=== PATIENT | female | born 1965 | race Caucasian/White ===

== ENCOUNTER → 2022-07-15 11:43 | Outpatient (CLI) | payer OTHER, SELFPAY ==
--- NOTE | ~2022-07-15 | MM_ITS ---
EXAMINATION: MM screening mee BI w corby HISTORY: Screening mammogram TECHNIQUE: Craniocaudal and mediolateral oblique 3-D tomosynthesis images were obtained and synthetic 2-D images were generated. CAD analysis was submitted and interpreted. COMPARISON: 02/12/2010 bilateral screening mammogram BREAST PARENCHYMAL COMPOSITION: There are scattered areas of fibroglandular density. FINDINGS: Stable mild asymmetry since 2009. There is no evidence of suspicious mass, calcification, o r architectural distortion to suggest malignancy in either breast. There has been no suspicious inter emilie change. IMPRESSION: 1. No mammographic evidence of malignancy. 2. Recommend routine screening mammography in one year. BI-RADS Category 2: Benign finding(s). Reviewed, dictated and finalized at location A.
== END ==
PROVIDERS: PCP Family Medicine; Visit Provider Physician Assistant Medical
DX: Z12.31 Encounter for screening mammogram for malignant neoplasm of breast (principal)
CPT/HCPCS: 77063; 77067

== ENCOUNTER 2023-10-08 15:01 | Emergency (ER) | payer OTHER, SELFPAY ==
[2023-10-08 15:12] VITALS: BP 145/96; PULSE 82; RESP 16; TEMP 37.6; O2SAT 97
--- NOTE | 2023-10-08 15:43 | ED.GENADULT ---
HPI - General Adult General Chief complaint: Skin/Abscess/Foreign Body Stated complaint: Right Breast Irritation Source: patient Mode of arrival: ambulatory Limitations: no limitations History of Present Illness HPI narrative: Patient presents for evaluation of redness to the right breast since yesterday. She indicates she noticed a blackhead to the breast over a month ago. She applied some pressure and was able to extract some white discharge. She continued to have a lump in the area so discussed this with her OBGYN at an appt about one month ago per her reports. She has a mammogram and ultrasound scheduled two days from now. She began picking at the area again yesterday and developed worsening redness thereafter. No fever, chills, nausea, vomiting. She is not diabetic. No history of abnormal mammogram. Last mammogram one year ago. Related Data Allergies Allergy/AdvReac Type Severity Reaction Status Date / Time Sulfa (Sulfonamide Allergy Severe HIVES Unverified 03/11/09 14:32 Antibiotics) Review of Systems Review of Systems: CONSTITUTIONAL: Denies fever, chills, or sweats. EYES: Denies visual changes, redness, or discharge. ENT: Denies rhinorrhea, congestion, sore throat, or otalgia. CARDIOVASCULAR: Denies chest pain, palpitations, or edema. RESPIRATORY: Denies cough or dyspnea. GASTROINTESTINAL: Denies abdominal pain, nausea, vomiting, or diarrhea. GENITOURINARY: Denies dysuria or hematuria. SKIN: Reports redness to the right breast. Denies rash or itching. MUSCULOSKELETAL: Reports pain in the right breast. Denies back pain or joint pain. NEUROLOGIC: Denies headache, numbness, dizziness, or weakness. PSYCHIATRIC: Denies anxiety or depression. [facility] Past Medical History Medical History Cellulitis of right breast Migraines Surgical History Surgical History History of tonsillectomy Family History Family History Mother Family history non-contributory Social History Social History Substance use: never Gender identity (if verbalized by the patient): Female Spiritual care concerns: No Exam Narrative: GENERAL: Well-appearing, well-nourished, and in no acute distress. HEAD: Normocephalic, atraumatic. EYES: PERRLA and EOMI. ENT: Nares clear, no rhinorrhea or epistaxis. Mucous membranes moist. Oropharynx without tonsillar hypertrophy exudate or other lesions. Bilateral TMs pearly poole nonbulging NECK: Supple. No adenopathy or masses. No carotid bruits or JVD CHEST: Clear to auscultation. No respiratory distress. No wheezes rales or rhonchi HEART: Regular rate and rhythm. No murmur heard. Normal peripheral pulses. ABDOMEN: Soft, nontender, nondistended, normal active bowel sounds. EXTREMITIES: Normal range of motion. No edema. SKIN: There is a 13 x 14 area of erythema to right breast with a 2 mm pustule with that area, and underlying induration. No peau d'orange appearance to the breast NEURO: No focal deficits. Alert and oriented x3. PSYCH: Normal mood and affect. Course Course Emergency Course: this is a 58-year-old female who presented for evaluation of redness to the right breast. She did have a pustule on exam but underlying tissue was indurated. I performed single stick puncture to right breast pustule and gently expressed approximately 2 ml of purulence. Wound culture was obtained. I contacted breast surgeon, Dr. Cooper, and she was agreeable to plans for discharge with clindamycin. She recommended pt call her office tomorrow for an appt. She should call imaging center tomorrow and update them regarding recent course of events. I would think it would be beneficial for her to keep ultrasound appt on Monday to determine wheth
== END 2023-10-08 15:43 | disposition home or self-care (01) ==
PROVIDERS: Emergency Provider Nurse Practitioner; PCP Internal Medicine
DX: N61.0 Mastitis without abscess (principal)
CPT/HCPCS: 10160; 87070; 87075; 87076; 87205; 99213; G0463

== ENCOUNTER → 2023-10-10 07:35 | Outpatient (CLI) | payer OTHER, SELFPAY ==
--- NOTE | ~2023-10-10 | MMUS_ITS ---
EXAMINATION: MM diagnostic mee BI w corby, US breast RT limited HISTORY: Palpable lump pain in the upper outer quadrant of the right breast TECHNIQUE: Craniocaudal, mediolateral, and mediolateral oblique 3-D tomosynthesis images of the breas ts were performed and synthetic 2-D images were generated. CAD analysis was submitted and interpreted . High resolution limited right breast ultrasound was performed. COMPARISON: 07/15/2022, 02/02/2010, 06/17/2008 BREAST PARENCHYMAL COMPOSITION: There are scattered areas of fibroglandular density. FINDINGS: MAMMOGRAPHIC FINDINGS: Right breast: There is skin thickening and subtle asymmetry on the craniocaudal view in the upper out er quadrant of the right breast corresponding to the area of palpable concern and pain. No suspicious mass, calcification, or architectural distortion are identified. Left breast: No suspicious mass, calcification, or architectural distortion are identified to suggest malignancy. There has been no suspicious interval change. ULTRASOUND: There is a 9 mm hypoechoic mass with indistinct margins at the 11:00 location, 11 cm from the nipple with a tract to the skin corresponding to the area of palpable concern and pain. There is surrounding edema and overlying skin thickening. No suspicious cystic or solid mass is identified. IMPRESSION: 1. Findings most consistent with an infected sebaceous cyst in the upper outer quadrant of the right breast corresponding to the area of clinical concern. Recommend completion of current antibiotic ther apy and continued clinical assessment. If findings do not resolve clinically, repeat ultrasound would be indicated. BI-RADS Category 2: Benign finding(s). Reviewed, dictated and finalized at location A. 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 Findings most consistent with an infected sebaceous cyst in the upper outer quadrant of the right breast corresponding to the area of clinical concern. Rec ommend completion of current antibiotic therapy and continued clinical assessme nt. If findings do not resolve clinically, repeat ultrasound would be indicated . BI-RADS Category 2: Benign finding(s).
== END ==
PROVIDERS: PCP Surgery; Visit Provider Nurse Practitioner
DX: N63.10 Unspecified lump in the right breast, unspecified quadrant (principal); R92.8 Other abnormal and inconclusive findings on diagnostic imaging of breast
CPT/HCPCS: 76642; 77062; 77066; G0279

== ENCOUNTER 2023-10-16 16:44 | Outpatient (NON) | payer OTHER, SELFPAY | END 2023-10-16 16:45 | disposition home or self-care (01) | LOC: ANHLAB 16:45 | PROVIDERS: PCP Surgery; Visit Provider Surgery | DX: N61.1 Abscess of the breast and nipple (principal) | CPT/HCPCS: 87070; 87075; 87076; 87205 ==

== ENCOUNTER 2024-02-08 11:37 | Outpatient (CLI) | payer OTHER, SELFPAY ==
--- NOTE | ~2024-02-08 | DEXA_ITS ---
Bone Density Report Name: BABAR COOLEY Age: 58 Sex: Female Ethnicity: White Date of : 1965 Indication: postmenopausal; screening for osteoporosis; height loss; hysterectomy; Referring Provider: NICK, PIETRO Study: Bone densitometry was performed. Exam Date: February 08, 2024 Accession number: [id number] Bone Density: Region BMD T-score Z-score Classification AP Spine (L1-L4) 0.923 -1.1 0.1 Osteopenia Femoral Neck (Left) 0.749 -0.9 0.3 Normal Total Hip (Left) 0.851 -0.7 0.1 Normal Femoral Neck (Right) 0.788 -0.5 0.6 Normal Total Hip (Right) 0.884 -0.5 0.3 Normal Total Hip Mean 0.868 -0.6 0.2 Normal World Health Organization criteria for BMD impression classify patients as: Normal (T-score at or above -1.0), Osteopenia (T-score between -1.0 and -2.5), or Osteoporosis (T-score at or below -2.5). 10-year Fracture Risk(1): Major Osteoporotic Fracture 5.5% Hip Fracture 0.2% Reported Risk Factors: [place] (), Neck BMD=0.749, BMI=43.7 (1) FRAX(R) Version 3.08. Fracture probability calculated for an untreated patient. Fracture probability may be lower if the patient has received treatment. Clinical Information Provided by Patient: Has the following medical conditions: Hysterectomy Patient maximum height was 58.0 Menopause Age: 31 No regular weight bearing exercise Drinks caffeinated beverages Onset of menses at age 13 Number of children 0 Impression: The patient has low bone mass, based on the Total Spine T-score. The patient has an estimated ten-year risk of hip fracture of 0.2% and an estimated ten-year risk of major fracture of 5.5%, based on the WHO FRAX algorithm. Discussion: BONE DENSITY IS LOW AT ONE OR MORE SKELETAL SITES. This patient's lowest T-score is low at one or more skeletal sites. It meets the World Health Organization's (WHO) criteria for ?low bone mass? (T-score between -1.0 and -2.5). The patient's 10-year risk of fracture as calculated by FRAX is less than the threshold where pharmacological therapy is recommended by the National Osteoporosis Foundation (NOF). However, all treatment decisions require clinical judgment and consideration of individual patient factors, including patient preferences, comorbidities, previous drug use, risk factors not captured in the FRAX model (e.g., frailty, falls, vitamin D deficiency, increased bone turnover, interval significant decline in bone density) and possible under or overestimation of fracture risk by FRAX. The patient should follow a healthful lifestyle (good nutrition with adequate calcium and vitamin D, and appropriate weight-bearing exercise). Follow-Up: Consider repeating this study in 2 to 3 years to reassess this patient's status, or sooner if there is some new clinical indication. Reported
== END 2024-02-08 11:38 ==
LOC: MICIMG 11:38
PROVIDERS: PCP Nurse Practitioner; Visit Provider Nurse Practitioner
DX: Z78.0 Asymptomatic menopausal state (principal); M85.88 Other specified disorders of bone density and structure, other site
CPT/HCPCS: 77080

== ENCOUNTER 2025-01-09 07:41 | Outpatient (CLI) | payer BC, SELFPAY ==
--- NOTE | ~2025-01-09 | MMUS_ITS ---
EXAMINATION: MM diagnostic mee BI w corby, US breast LT limited HISTORY: Palpable left breast lump TECHNIQUE: Additional 3-D tomosynthesis images of the breasts were performed and synthetic 2-D images were generated. CAD analysis was submitted and interpreted. High resolution Limited left breast ultr asound was performed. COMPARISON: Comparison to multiple prior studies sequentially, with oldest reviewed study dated 07/15. BREAST PARENCHYMAL COMPOSITION: Not dense: There are scattered areas of fibroglandular density. FINDINGS: MAMMOGRAPHIC FINDINGS: There are no suspicious masses, calcifications or architectural distortion in either breast to sugges t malignancy. ULTRASOUND: Limited left breast ultrasound: At 2:00, 5 cm from the nipple in the area of palpable concern there i s an oval 7 mm hypoechoic subcutaneous mass without posterior shadowing or internal vascularity, is l ikely benign. IMPRESSION: 1. Probable benign subcutaneous 7 mm left breast mass at 2:00, 5 cm from the nipple. 2. Recommend 6 month follow-up Limited left breast ultrasound BI-RADS category 3, probably benign findings. 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 Probable benign subcutaneous 7 mm left breast mass at 2:00, 5 cm from the ni pple. 2. Recommend 6 month follow-up Limited left breast ultrasound BI-RADS category 3, probably benign findings.
== END 2025-01-09 07:42 | disposition home or self-care (01) ==
PROVIDERS: PCP Physician Assistant; Visit Provider Nurse Practitioner
DX: N63.21 Unspecified lump in the left breast, upper outer quadrant (principal)
CPT/HCPCS: 76642; 77062; 77066; G0279

== ENCOUNTER 2025-07-10 07:44 | Outpatient (CLI) | payer BC, SELFPAY ==
--- NOTE | ~2025-07-10 | MMUS_ITS ---
EXAMINATION: MM diagnostic mee LT w corby, US breast LT limited HISTORY: Follow-up left breast mass TECHNIQUE: Additional 3-D tomosynthesis images of the left breast were performed and synthetic 2-D im ages were generated. CAD analysis was submitted and interpreted. High resolution Limited left breast ultrasound was performed. COMPARISON: 07/15/2022 BREAST PARENCHYMAL COMPOSITION: Not dense: There are scattered areas of fibroglandular density. FINDINGS: MAMMOGRAPHIC FINDINGS: The left breast is stable. No new masses, calcifications or architectural distortion in the left pancho st to suggest malignancy. ULTRASOUND: Limited left breast ultrasound: Normal heterogeneous echotexture without focal solid or cystic mass. The mass identified on prior ultrasound at 2:00, 5 cm from the nipple is now visualized currently. IMPRESSION: 1. No evidence for malignancy in the left breast. 2. Routine yearly screening mammogram and regular clinical breast examination are recommended. BI-RADS Category 1: Negative Reviewed, dictated and finalized at location A. IMPRESSION: 1. No evidence for malignancy in the left breast. 2. Routine yearly screening mammogram and regular clinical breast examination a re recommended. BI-RADS Category 1: Negative
== END 2025-07-10 07:45 | disposition home or self-care (01) ==
PROVIDERS: PCP Obstetrics & Gynecology Gynecology; Visit Provider Obstetrics & Gynecology Gynecology
DX: R92.8 Other abnormal and inconclusive findings on diagnostic imaging of breast (principal)
CPT/HCPCS: 76642; 77061; 77065; G0279